=== PATIENT | female | born 1970 | race Caucasian/White ===

== ENCOUNTER → 2017-02-19 19:37 | Outpatient (CLI) | payer BC ==
[2013-09-16 07:29] VITALS: BMI 34.1
[~2017-02-19 19:37] MED LIST: PRILOSEC20 MG PO
== END | disposition home or self-care (01) ==
LOC: D.SLEEP 19:37
DX: G47.33 Obstructive sleep apnea (adult) (pediatric) (principal)

== ENCOUNTER → 2017-03-11 19:36 | Outpatient (CLI) | payer MEDICARE ==
[2013-09-16 07:29] VITALS: BMI 34.1
== END | disposition home or self-care (01) ==
LOC: D.SLEEP 19:36
DX: G47.33 Obstructive sleep apnea (adult) (pediatric) (principal)